=== PATIENT | male | born 1955 | race Caucasian/White ===

== ENCOUNTER 2022-10-10 11:41 | Outpatient (AMB) | payer MEDICARE, OTHER, SELFPAY ==
--- NOTE | 2022-10-10 11:45 | AM.OFFWIN_ITS ---
Intake Vital Signs 10/10/22 11:49 BP 140/80 H Blood Pressure Location Lt brachial Position Sitting Pulse 60 Pulse Source Pulse Oximeter Pulse Oximetry (%) 97 Oxygen Delivery Method Room Air Intake Visit Reasons: [employer], Right foot injury Intake Note: Patient here for right foot pain, believes it is broke. He dropped a piece of metal on his foot about a month ago and has not gotten any better. Patient Tobacco Use Status: Former Tobacco user Allergies No Known Allergies Allergy (Unverified 10/10/22 11:48) Do you need a note to return to daycare/school/sports/work: No HPI HPI Comments History of Present Illness Details This is a 67-year-old male who presents to the office today for sick visit. Patient complaining of right foot pain for the past 1 month. He states he dropped a heavy piece of metal in his right foot about 1 month ago. He started to develop right foot pain, swelling, and ecchymosis following the injury. Patient states the pain actually improved initially but has worsened over the past 2 weeks. He denies any numbness/weakness/paresthesias of his toes. He otherwise is feeling well. He reports the pain is at its worst while he is ambulating. [facility] Social History Patient Tobacco Use Status: Former Tobacco user Review of Systems Const All systems reviewed & are unremarkable except as noted in HPI and below Reports no additional complaints Eyes Reports no additional complaints ENT Reports no additional complaints Card Reports no additional complaints Resp Reports no additional complaints GI Reports no additional complaints Reports no additional complaints Musc Reports no additional complaints and Reports arthralgias Skin/Breast Reports system reviewed and no additional complaints, except as documented Neuro Reports no additional complaints Psych Reports no additional complaints Endo Reports no additional complaints Bao/Lymph Reports no additional complaints Aller/Immun Reports no additional complaints Physical Exam Vital Signs: Last Vital Signs Pulse 60 10/10/22 11:49 BP 140/80 H 10/10/22 11:49 Pulse Ox 97 10/10/22 11:49 Oxygen Delivery Method Room Air 10/10/22 11:49 Const General: cooperative, healthy appearing and no acute distress Orientation/consciousness: patient oriented x3 HEENT Head: Yes normal to inspection Ears: hearing grossly normal bilaterally General nose exam: Normal external nose present Face and sinus: Yes normal facial exam Resp Effort & Inspection: normal respiratory effort, able to speak in complete sentences and no respiratory distress Cardio Other: Chronic pedal edema. Rate: regular rate Peripheral pulses: Peripheral pulses 2+ throughout Skin General skin exam: no rashes or lesions noted Neuro General: patient oriented x3 Extrem Other: Tenderness to palpation of the right 1st metatarsal. No ankle or tibial/fibular tenderness to palpation. Patient has chronic pedal edema, but he states this is currently at his baseline. No ecchymosis noted. No obvious deformities. Assessment & Plan Assessment & Plan (1) Right foot pain: Code(s): M79.671 - Pain in right foot Plan This is a 67-year-old male presenting to the office with right foot pain following a right foot injury that occurred 1 month ago. History and physical most consistent with contusion of the foot versus fracture of the foot. X-ray of the right foot was obtained for further evaluation. X-ray of the right foot does show a healing fracture of the right 1st metatarsal. This injury occurred 1 month ago. Patient was given a post-op shoe for ambulation to relieve pressure from the foot. Recommended rest/activity modification, ice to the area, and elevation of the lower extremity. Patient was advised to follow up or go to the emergency room if he were to develop persistent or worsening symptoms. Orders: Orders XR foot RT 2V Today M79.671 - Pain in right foot Coding Level of Care Code New Pt Level 3 (17568) Diagnoses Right foot pain M79.671
[2022-10-10 11:49] VITALS: BP 140/80; PULSE 60; O2SAT 97
== END 2022-10-10 12:59 | disposition home or self-care (01) ==
PROVIDERS: PCP Internal Medicine; Visit Provider Physician Assistant Medical
DX: M79.671 Pain in right foot (principal)
CPT/HCPCS: 99203

== ENCOUNTER 2022-10-10 12:05 | Outpatient (REF) | payer MEDICARE, OTHER, SELFPAY ==
--- NOTE | ~2022-10-10 | XR_ITS ---
EXAMINATION: XR FOOT, RIGHT CLINICAL INFORMATION: Pain COMPARISON: None available. TECHNIQUE: AP, lateral, and oblique views of the right foot. FINDINGS: There is an age indeterminate nondisplaced fracture of the first metatarsal bone. There is ill-defined lucency, increased sclerosis and periosteal reaction suggestive of evidence of healing. Well-corticated ossification inferior to the lateral malleolus questionable fracture. There is a soft tissue swelling seen in this region and follow-up ankle x-ray should be considered if clinically indicated. There is also soft tissue swelling over the dorsal foot. 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 Small calcaneal spurs. XR/XR foot RT 2V IMPRESSION: Age-indeterminate healing fracture of the first metatarsal bone. Lateral ankle soft tissue swelling. Well-corticated ossification inferior to the lateral malleolus suggestive of old trauma. Clinical correlation recommended. Ankle x-ray may be helpful if there is history of acute trauma to the ankle.
== END 2022-10-10 12:06 | disposition home or self-care (01) ==
LOC: HO.HMGCX 12:05
PROVIDERS: PCP Internal Medicine; Visit Provider Physician Assistant Medical
DX: M79.671 Pain in right foot (principal)
CPT/HCPCS: 73620